=== PATIENT | female | born 1955 | race Two or more races ===

== ENCOUNTER 2017-05-02 11:04 | Inpatient (IN) | payer MEDICAID ==
[~2017-05-02] VITALS: Ht 165.1 cm; Wt 64.9 kg
[2017-05-02] VITALS (7 sets, daily range): BP systolic 102–135; BP diastolic 58–70
[~2017-05-02 11:04] MED LIST: LORazepam Inj 2mg/ml 1ml IV ONE; NKM; levETIRAcetam 500 MG in D5W 110 ML IV ONE; levETIRAcetam 500mg vial IV ONE
[2017-05-02 11:42] LABS: BASOPHILS % (AUTO) 1.3 % (0.0-2.0); EOSINOPHILS % (AUTO) 3.2 % (0.0-3.0); HEMATOCRIT 45.1 % (37.0-47.0); HEMOGLOBIN 15.1 G/DL (12.0-16.0); LYMPHOCYTES % (AUTO) 38.4 % (20.0-45.0); MEAN CORPUSCULAR VOLUME 89 FL (80-99); MONOCYTES % (AUTO) 7.5 % (1.0-10.0); NEUTROPHILS % (AUTO) 49.6 % (45.0-75.0); PLATELET COUNT 203 K/UL (150-450); RED BLOOD COUNT 5.04 M/UL (4.20-5.40); RED CELL DISTRIBUTION WIDTH 11.4 % (11.6-14.8); WHITE BLOOD COUNT 7.7 K/UL (4.8-10.8)
--- NOTE | 2017-05-02 11:42 | Diagnostic Imaging Report ---
Indication: Seizure Technique: Continuous helical CT scanning of the head was performed utilizing automated exposure control without intravenous contrast material. Axial and coronal reconstructions were obtained. Comparison: None CT dose: Total DLP 1460 mGycm; CTDI vol 70.4 mGy Findings: There is no acute intracranial hemorrhage, mass effect or cortical edema. There is a cavum septum pellucidum. The ventricles, sulci and cisterns are otherwise within normal limits. The posterior fossa and fourth ventricle are unremarkable. Sellar and suprasellar regions are grossly unremarkable. Visualized mastoid air cells and paranasal sinuses are unremarkable. No focal lesions of the bony calvarium or soft tissues of the scalp are seen. Impression: No evidence of acute intracranial hemorrhage, mass effect or cortical edema. MRI may be obtained for more sensitive evaluation of reported seizure. The CT scanner at [facility] is accredited by the [employer] and the scans are performed using protocols designed to limit radiation exposure to as low as reasonably achievable to attain images of sufficient resolution adequate for diagnostic evaluation.
[2017-05-02 11:44] LABS: ANION GAP 13 mmol/L (5-15); BLOOD UREA NITROGEN 22 mg/dL (7-18); CALCIUM 9.2 MG/DL (8.5-10.1); CARBON DIOXIDE 22 MMOL/L (21-32); CHLORIDE 103 MMOL/L (98-107); CREATININE 0.9 MG/DL (0.55-1.30); POTASSIUM 3.8 MMOL/L (3.5-5.1); SODIUM 138 MMOL/L (136-145)
[2017-05-02 11:49] LABS: ALANINE AMINOTRANSFERASE 43 U/L (12-78); ALBUMIN 3.9 G/DL (3.4-5.0); ALBUMIN/GLOBULIN RATIO 1.1 (1.0-2.7); ALKALINE PHOSPHATASE 98 U/L (46-116); ASPARTATE AMINO TRANSFERASE 30 U/L (15-37); BILIRUBIN,TOTAL 0.3 MG/DL (0.2-1.0); CREATINE KINASE 187 U/L (26-308)
--- NOTE | 2017-05-02 11:53 | Diagnostic Imaging Report ---
Indication: Chest pain Technique: XRAY Chest 1v Comparison: None Findings: The cardiomediastinal silhouette is within normal limits. There is no focal consolidation, pneumothorax or pleural effusion. Degenerative changes of the spine are noted. There is a radiopaque density projecting over the upper mediastinum. Impression: No acute cardiopulmonary disease. Radiopaque density projecting over the upper mediastinum. Clinical correlation recommended.
[2017-05-02 11:59] LABS: APPEARANCE,URINE CLEAR; BILIRUBIN, URINE NEGATIVE (NEGATIVE); COLOR,URINE PALE YELLOW; GLUCOSE, URINE (UA) NEGATIVE (NEGATIVE); KETONES,URINE NEGATIVE (NEGATIVE); LEUKOCYTE ESTERASE ,URINE NEGATIVE (NEGATIVE); NITRITE,URINE NEGATIVE (NEGATIVE); PH,URINE 6 (4.5-8.0); PROTEIN,URINE 1+ (NEGATIVE); UROBILINOGEN,URINE NORMAL MG/DL (0.0-1.0)
--- NOTE | 2017-05-02 15:45 | Emergency Room Report ---
History of Present Illness General Chief Complaint: Seizure Source: Patient Present Illness HPI The patient presents post seizure. Generalized tonic clonic seizure. According to family, the seizure lasted 2 minutes. The patient bit her tongue. She has never had a seizure before. She has felt dizziness recently. Also, some pressure in the back of her head for several months. She felt tingling before she passed out. She denies chest pain or palpitations. She was postictal when 911 arrived. She had gradually improving mentation. Her Accu- Chek was 86 in the field. MLAPPS performed by [facility] was negative. No fevers, NVD, incontinence, abdominal pain. No recent head trauma. Denies major medical problems or chronic medication use. No alcohol, drugs. Allergies: Coded Allergies: NO KNOWN ALLERGIES (Verified Allergy, Unknown, 05/02/17) Patient History Past Medical History: see triage record Social History: Denies: smoking, alcohol use, drug use Social History Narrative with family Reviewed Nursing Documentation: PMH: Agreed, PSxH: Agreed Nursing Documentation-PMH Past Medical History: No Stated History Review of Systems All Other Systems: negative except mentioned in HPI Physical Exam Vital Signs Date Time Temp Pulse Resp B/P (MAP) Pulse Ox O2 Delivery O2 Flow Rate FiO2 05/02/17 10:52 98.4 91 16 142/77 100 98.4 05/02/17 11:04 Room Air Sp02 EP Interpretation: reviewed, normal General Appearance: well appearing, no apparent distress, GCS 15 Head: normocephalic Eyes: bilateral eye normal inspection, bilateral eye PERRL, bilateral eye EOMI ENT: moist mucus membranes - lingual maceration Neck: supple Respiratory: lungs clear, normal breath sounds Cardiovascular #1: regular rate, rhythm Cardiovascular #2: 2+ radial (R) Gastrointestinal: normal inspection, non tender, no mass, non-distended, decreased bowel sounds Musculoskeletal: back normal, normal range of motion Neurologic: alert, oriented x3, representative government relations III-XII nml as tested, motor strength/tone normal, DTRs symmetric, sensory intact, cerebellar normal, normal gait, speech normal Psychiatric: mood/affect normal Skin: normal inspection, warm/dry Medical Decision Making Diagnostic Impression: Primary Impression: New onset seizure Additional Impression: Chest pain Qualified Codes: R07.9 - Chest pain, unspecified ER Course Patient presents with seizure. Differential includes brain bleed, electrolyte abnormality, withdrawal, syncopal seizure, cysticercosis amongst others. We need to also exclude acute myocardial infarction. Evaluation will be with CT of the head, chest x-ray, labs and EKG. Treatment will be with Ativan, Keppra, both IV. The patient will also receive IV hydration. EKG shows no acute injury. CT has no abnormalities. Chest x-ray is unremarkable. Labs are significant normal white count, normal electrolytes and negative urinalysis. The patient tolerated IV medications well and is fully oriented. She is complaining about some chest pain and a repeat EKG was done. The pain is more pleuritic and positional. She also has chest wall tenderness. When the patient stood, she was weak and pale. Due to the patient's age and new onset seizure of questionable etiology, patient admitted telemetry. Contacted Dr. Bustos for admission. Laboratory Tests Test 05/02/17 11:07 05/02/17 11:50 White Blood Count 7.7 K/UL (4.8-10.8) Red Blood Count 5.04 M/UL (4.20-5.40) Hemoglobin 15.1 G/DL (12.0-16.0) Hematocrit 45.1 % (37.0-47.0) Mean Corpuscular Volume 89 FL (80-99) Mean Corpuscular Hemoglobin 29.9 PG (27.0-31.0) Mean Corpuscular Hemoglobin Concent 33.5 G/DL (32.0-36.0) Red Cell Distribution Width 11.4 % (11.6-14.8) L Platelet Count 203 K/UL (150-450) Mean Platelet Volume 9.6 FL (6.5-10.1) Neutrophils (%) (Auto) 49.6 % (45.0-75.0) Lymphocytes (%) (Auto) 38.4 % (20.0-45.0) Monocytes (%) (Auto) 7.5 % (1.0-10.0) Eosinophils (%) (Auto) 3.2 % (0.0-3.0) H Basophils (%) (Auto) 1.3 % (0.0-2.0) Sodium Level 138 MMOL/L (136-145) Potassium Level 3.8 MMOL/L (3.5-5.1) Chloride Level 103 MMOL/L (98-107) Carbon Dioxide Level 22 MMOL/L (21-32) Anion Gap 13 mmol/L (5-15) Blood Urea Nitrogen 22 mg/dL (7-18) H Creatinine 0.9 MG/DL (0.55-1.30) Estimate Glomerular Filtration Rate > 60 mL/min (>60) Glucose Level 84 MG/DL (74-106) Calcium Level 9.2 MG/DL (8.5-10.1) Total Bilirubin 0.3 MG/DL (0.2-1.0) Aspartate Amino Transferase (AST) 30 U/L (15-37) Alanine Aminotransferase (ALT) 43 U/L (12-78) Alkaline Phosphatase 98 U/L (46-116) Total Creatine Kinase 187 U/L (26-308) Troponin I 0.000 ng/mL (0.000-0.056) Total Protein 7.4 G/DL (6.4-8.2) Albumin 3.9 G/DL (3.4-5.0) Globulin 3.5 g/dL Albumin/Globulin Ratio 1.1 (1.0-2.7) Serum Alcohol < 3 mg/dL Urine Color Pale yellow Urine Appearance Clear Urine pH 6 (4.5-8.0) Urine Specific [place] 1.015 (1.005-1.035) Urine Protein 1+ (NEGATIVE) H Urine Glucose (UA) Negative (NEGATIVE) Urine Ketones Negative (NEGATIVE) Urine Occult Blood Negative (NEGATIVE) Urine Nitrite Negative (NEGATIVE) Urine Bilirubin Negative (NEGATIVE) Urine Urobilinogen Normal MG/DL (0.0-1.0) Urine Leukocyte Esterase Negative (NEGATIVE) Urine RBC 0-2 /HPF (0 - 2) Urine WBC 0-2 /HPF (0 - 2) Urine Squamous Epithelial Cells Few /LPF (NONE/OCC) Urine Bacteria Few /HPF (NONE) Urine Opiates Screen Negative (NEGATIVE) Urine Barbiturates Screen Negative (NEGATIVE) Phencyclidine (PCP) Screen Negative (NEGATIVE) Urine Amphetamines Screen Negative (NEGATIVE) Urine Benzodiazepines Screen Negative (NEGATIVE) Urine Cocaine Screen Negative (NEGATIVE) Urine Marijuana (THC) Screen Negative (NEGATIVE) EKG Diagnostic Results Rate: normal Rhythm: NSR ST Segments: no acute changes Other Impression Second EKG at 1438. Sinus rhythm, low voltage S, rate 72, normal intervals. Rhythm Strip Diag. Results EP Interpretation: yes Rhythm: NSR, no PVC's, no ectopy Chest X-Ray Diagnostic Results Chest X-Ray Diagnostic Results : Chest X-Ray Ordered: Yes # of Views/Limited/Complete: 1 View Indication: Other EP Interpretation: Yes Interpretation: no consolidation, no effusion, no pneumothorax, no acute cardiopulmonary disease Impression: No acute disease Electronically Signed by: Electronically signed by Matias Henson MD CT/MRI/US Diagnostic Results CT/MRI/US Diagnostic Results : Imaging Test Ordered: Head Impression No evidence of acute intracranial hemorrhage, mass effect or cortical edema. Last Vital Signs Date Time Temp Pulse Resp B/P (MAP) Pulse Ox O2 Delivery O2 Flow Rate FiO2 05/02/17 19:48 98.1 86 21 105/66 98 Room Air 98.1 Status: improved Disposition: ADMITTED INPATIENT Condition: Serious Referrals: NOT CHOSEN AZALIA/,REFERRING (PCP) Matias Henson M.D. May 02, 2017 15:45
[2017-05-02] MEDS ORDERED: KEPPRA500 MG ORAL (15:52)
[2017-05-02] MEDS ORDERED: TYLENOL325 MG ORAL (15:52)
[2017-05-02] MEDS ORDERED: Mylanta II UD 30ml ORAL PRN (17:00)
[2017-05-02] MEDS ORDERED: Zolpidem 5mg tab ORAL PRN (17:00)
[2017-05-02] MEDS ORDERED: Miralax 17gm pkt ORAL PRN (17:00)
[2017-05-02] MEDS: Docusate 100mg cap ORAL SCH (21:44)
[2017-05-03] VITALS: BP 98/56
[2017-05-03 04:00] VITALS: BP 105/61
[2017-05-03 08:00] VITALS: BP 93/58
[2017-05-03 08:40] LABS: EOSINOPHILS % (AUTO) 3.2 % (0.0-3.0); HEMATOCRIT 35.2 % (37.0-47.0); HEMOGLOBIN 12.1 G/DL (12.0-16.0); LYMPHOCYTES % (AUTO) 28.8 % (20.0-45.0); MEAN CORPUSCULAR VOLUME 90 FL (80-99); MONOCYTES % (AUTO) 8.5 % (1.0-10.0); NEUTROPHILS % (AUTO) 58.4 % (45.0-75.0); PLATELET COUNT 153 K/UL (150-450); RED BLOOD COUNT 3.93 M/UL (4.20-5.40); RED CELL DISTRIBUTION WIDTH 11.3 % (11.6-14.8); WHITE BLOOD COUNT 5.7 K/UL (4.8-10.8)
[2017-05-03] MEDS: Docusate 100mg cap ORAL SCH ×2 (08:44→20:48)
[2017-05-03 09:20] LABS: ANION GAP 6 mmol/L (5-15); BLOOD UREA NITROGEN 12 mg/dL (7-18); CALCIUM 8.4 MG/DL (8.5-10.1); CARBON DIOXIDE 26 MMOL/L (21-32); CHLORIDE 110 MMOL/L (98-107); CREATININE 0.7 MG/DL (0.55-1.30); POTASSIUM 3.9 MMOL/L (3.5-5.1); SODIUM 142 MMOL/L (136-145)
[2017-05-03 12:00] VITALS: BP 101/55
--- NOTE | 2017-05-03 12:04 | Neurology Progress Note ---
Objective Physical Exam Last Vital Signs Date Time Temp Pulse Resp B/P (MAP) Pulse Ox O2 Delivery O2 Flow Rate FiO2 05/03/17 08:00 82 05/03/17 08:00 98.0 20 93/58 98 Room Air 98.0 Laboratory Tests Test 05/03/17 07:25 White Blood Count 5.7 K/UL (4.8-10.8) Red Blood Count 3.93 M/UL (4.20-5.40) L Hemoglobin 12.1 G/DL (12.0-16.0) Hematocrit 35.2 % (37.0-47.0) L Mean Corpuscular Volume 90 FL (80-99) Mean Corpuscular Hemoglobin 30.8 PG (27.0-31.0) Mean Corpuscular Hemoglobin Concent 34.4 G/DL (32.0-36.0) Red Cell Distribution Width 11.3 % (11.6-14.8) L Platelet Count 153 K/UL (150-450) Mean Platelet Volume 8.7 FL (6.5-10.1) Neutrophils (%) (Auto) 58.4 % (45.0-75.0) Lymphocytes (%) (Auto) 28.8 % (20.0-45.0) Monocytes (%) (Auto) 8.5 % (1.0-10.0) Eosinophils (%) (Auto) 3.2 % (0.0-3.0) H Basophils (%) (Auto) 1.0 % (0.0-2.0) Sodium Level 142 MMOL/L (136-145) Potassium Level 3.9 MMOL/L (3.5-5.1) Chloride Level 110 MMOL/L (98-107) H Carbon Dioxide Level 26 MMOL/L (21-32) Anion Gap 6 mmol/L (5-15) Blood Urea Nitrogen 12 mg/dL (7-18) Creatinine 0.7 MG/DL (0.55-1.30) Estimat Glomerular Filtration Rate > 60 mL/min (>60) Glucose Level 90 MG/DL (74-106) Calcium Level 8.4 MG/DL (8.5-10.1) L Magnesium Level 2.0 MG/DL (1.8-2.4) Vitamin B12 Level 1009 PG/ML (193-986) H Vitamin D 25-Hydroxy Pending 25-Hydroxy Vitamin D2 Pending 25-Hydroxy Vitamin D3 Pending Folate 14.0 NG/ML (8.6-58.9) Thyroid Stimulating Hormone (TSH) 1.738 uiU/mL (0.358-3.740) Prolactin Pending Impression/Recommendations Problems: (1) new onset generalised sz disorder Status: stable Recommendations #[id number] SANTOS FUENTES May 03, 2017 12:04
--- NOTE | 2017-05-03 14:47 | History and Physical ---
History of Present Illness General Date patient seen: May 03, 2017 Time patient seen: 14:47 Reason for Hospitalization: Seizure Present Illness HPI 61yo female with no sig pmh who presents with seizures. Pt states she was taking to her friend when suddenly she had LOC. Pt was noted to have tonic- clonic movements lasting abt 2 minutes. Pt also noted to have bitten her tongue during this episode. She stated that just prior to seizure she had a reflex in her eyes, She also had feeling of tingling before she passed out. Also c/o posterior occipital headache for the last few months. Pt was initially postictal but this gradually improvement. Pt states that 6 months ago she had a similar episode but there was no tongue biting, instead she had urinary incontinence. In ED, pt was noted to be postictal initially but this gradually improved. VSS. CT brain showed no acute abnormality. Pt was given keppra IV. Allergies: Coded Allergies: NO KNOWN ALLERGIES (Verified Allergy, Unknown, 05/02/17) Medication History Scheduled No Known Medications* (NKM - No Known Medications*), 0 ., (Reported) Discontinued Medications Acetaminophen (Tylenol), 650 MG ORAL Q6H PRN for Prn Pain/Headache/Temp > 101 Discontinued Reason: MD discontinued med Levetiracetam (Keppra), 500 MG ORAL EVERY 12 HOURS Discontinued Reason: MD discontinued med Patient History History Provided By: Patient, Medical Record, EMS Healthcare decision maker N Resuscitation status Full Code Advanced Directive on File No Past Medical/Surgical History Past Medical/Surgical History: (1) No significant past medical history Family History Family History: Patient reports no known family medical history. Social History Social History: (1) No significant social history Review of Systems Constitutional: Reports: no symptoms Eye: Reports: no symptoms ENT: Reports: no symptoms Respiratory: Reports: no symptoms Cardiovascular: Reports: no symptoms Gastrointestinal: Reports: no symptoms Genitourinary: Reports: no symptoms Musculoskeletal: Reports: no symptoms Skin: Reports: no symptoms Psychiatric: Reports: no symptoms Neurological: Reports: headache, seizure, tingling Endocrine: Reports: no symptoms Hematologic/Lymphatic: Reports: no symptoms Physical Exam Physical Exam Narrative General: alert, cooperative, no distress, appears stated age Head: normocephalic, without obvious abnormality, atraumatic Eyes: conjunctivae/corneas clear. PERRL, EOM's intact Throat: lips, mucosa, and tongue normal. MMM Neck: supple, symmetrical, trachea midline, and no JVD Lungs: clear to auscultation bilaterally Heart: regular rate and rhythm, S1, S2 normal, no murmur, click, rub or gallop Abdomen: soft, non-tender, non-distended, bowel sounds normal; no masses or organomegaly Extremities: extremities normal, atraumatic, no cyanosis or edema Pulses: 2+ and symmetric Skin: skin color, texture, turgor normal; no rashes or lesions Neurologic: grossly normal, no focal deficits Last 24 Hour Vital Signs Date Time Temp Pulse Resp B/P (MAP) Pulse Ox O2 Delivery O2 Flow Rate FiO2 05/03/17 08:00 82 05/03/17 08:00 98.0 70 20 93/58 98 Room Air 98.0 05/03/17 04:00 56 05/03/17 04:00 97.9 66 20 105/61 95 Room Air 97.9 05/03/17 01:03 67 05/03/17 00:00 98.6 76 18 98/56 95 Room Air 98.6 05/02/17 19:48 98.1 86 21 105/66 98 Room Air 98.1 05/02/17 19:30 97.7 73 20 102/58 95 Room Air 97.7 05/02/17 19:30 78 05/02/17 19:13 98.1 86 21 105/66 98 Room Air 98.1 05/02/17 18:36 98.1 84 15 118/67 100 Room Air 98.1 05/02/17 16:55 98.1 05/02/17 16:22 98.1 81 18 109/60 99 Room Air 98.1 05/02/17 15:56 98.0 05/02/17 14:57 98.0 79 17 105/59 100 Room Air 98.0 Intake and Output 05/02/17 05/03/17 19:00 07:00 Intake Total 0 ml 1850 ml Balance 0 ml 1850 ml Intake Oral 0 ml 350 ml IV Total 1500 ml # Voids 2 Laboratory Tests Test 05/03/17 07:25 White Blood Count 5.7 K/UL (4.8-10.8) Red Blood Count 3.93 M/UL (4.20-5.40) L Hemoglobin 12.1 G/DL (12.0-16.0) Hematocrit 35.2 % (37.0-47.0) L Mean Corpuscular Volume 90 FL (80-99) Mean Corpuscular Hemoglobin 30.8 PG (27.0-31.0) Mean Corpuscular Hemoglobin Concent 34.4 G/DL (32.0-36.0) Red Cell Distribution Width 11.3 % (11.6-14.8) L Platelet Count 153 K/UL (150-450) Mean Platelet Volume 8.7 FL (6.5-10.1) Neutrophils (%) (Auto) 58.4 % (45.0-75.0) Lymphocytes (%) (Auto) 28.8 % (20.0-45.0) Monocytes (%) (Auto) 8.5 % (1.0-10.0) Eosinophils (%) (Auto) 3.2 % (0.0-3.0) H Basophils (%) (Auto) 1.0 % (0.0-2.0) Sodium Level 142 MMOL/L (136-145) Potassium Level 3.9 MMOL/L (3.5-5.1) Chloride Level 110 MMOL/L (98-107) H Carbon Dioxide Level 26 MMOL/L (21-32) Anion Gap 6 mmol/L (5-15) Blood Urea Nitrogen 12 mg/dL (7-18) Creatinine 0.7 MG/DL (0.55-1.30) Estimat Glomerular Filtration Rate > 60 mL/min (>60) Glucose Level 90 MG/DL (74-106) Calcium Level 8.4 MG/DL (8.5-10.1) L Magnesium Level 2.0 MG/DL (1.8-2.4) Vitamin B12 Level 1009 PG/ML (193-986) H Vitamin D 25-Hydroxy Pending 25-Hydroxy Vitamin D2 Pending 25-Hydroxy Vitamin D3 Pending Folate 14.0 NG/ML (8.6-58.9) Thyroid Stimulating Hormone (TSH) 1.738 uiU/mL (0.358-3.740) Prolactin Pending Height (Feet): 5 Height (Inches): 5.00 Weight (Pounds): 143 Medications Current Medications Medications (Trade) Dose Ordered Sig/Gris Route PRN Reason Start Time Stop Time Status Last Admin Dose Admin Acetaminophen (Tylenol) 650 mg Q4H PRN ORAL Mild Pain (Pain Scale 1-3) 05/02/17 17:00 06/01/17 16:59 Acetaminophen (Tylenol) 650 mg Q4H PRN ORAL fever 05/02/17 17:00 06/01/17 16:59 Al Hydroxide/Mg Hydroxide (Mylanta II) 30 ml Q6H PRN ORAL dyspepsia 05/02/17 17:00 06/01/17 16:59 Bisacodyl (Dulcolax) 10 mg HSPRN PRN RECTAL Constipation 05/02/17 17:00 06/01/17 16:59 Dextrose (Dextrose 50%) STAT PRN IV Hypoglycemia 05/02/17 17:00 06/01/17 16:59 Diphenhydramine HCl (Benadryl) 25 mg Q6H PRN ORAL Itching/Pruritis 05/02/17 17:00 06/01/17 16:59 Docusate Sodium (Colace) 100 mg EVERY 12 HOURS ORAL 05/02/17 21:00 06/01/17 20:59 05/03/17 08:44 Levetiracetam (Keppra) 500 mg Q12HR ORAL 05/02/17 21:00 06/01/17 20:59 05/03/17 08:43 Ondansetron HCl (Zofran) 4 mg Q6H PRN IVP Nausea & Vomiting 05/02/17 17:00 06/01/17 16:59 Polyethylene Glycol (Miralax) 17 gm HSPRN PRN ORAL Constipation 05/02/17 17:00 06/01/17 16:59 Sodium Chloride 1,000 ml @ 125 mls/hr Q8H IV 05/04/17 13:00 06/03/17 12:59 Zolpidem Tartrate (Ambien) 5 mg HSPRN PRN ORAL Insomnia 05/02/17 17:00 05/09/17 16:59 Assessment/Plan Problem List: (1) New onset seizure ICD Codes: R56.9 - Unspecified convulsions SNOMED: [id number] Status: stable Assessment/Plan Admit inpt Neurology consulted Cont keppra 500mg BID IVFs Check EEG Check TSH, B12/folate, vit D, prolactin Seizure precautions Neuro checks DVT ppx w/ SCDs, early ambulation FULL CODE D/w pt, RN, SW/CM, neuro regarding mgmt and dispo Juli Laura M.D. May 03, 2017 14:47
[2017-05-03 16:00] VITALS: BP 104/54
--- NOTE | 2017-05-03 18:45 | Consultation ---
DATE OF CONSULTATION: 05/03/2017 NEUROLOGICAL CONSULTATION CONSULTING PHYSICIAN: Óscar Sim M.D. REFERRING PHYSICIAN: Lazaro Dick M.D. HISTORY OF PRESENT ILLNESS: The patient is a 61-year-old female seen in neurological consultation to evaluate the episode appears to be seizures. According to the patient, on the day of admission, she was talking to her friend when suddenly she lost consciousness. She indicated just prior to this seizure she had what appears "reflex" in her eyes." Episode lasted about two minutes combined with generalized clonic-tonic movement during which she has bitten her tongue. On admission she was indicating that she was feeling tingling before she passed out and had some posterior occipital headaches for the last few months. The patient was initially postictal which gradually resolved. Her vital signs were stable. Blood pressure 142/77, afebrile. Her initial workup included CT scan of the brain without contrast revealing no acute intracranial abnormalities. No midline shift. Her chest x-ray with no acute cardiopulmonary disease. Laboratory work included normal CBC studies. Chemistry panel unremarkable. B12, folate, and thyroid function were normal. Toxicology panel was negative. Urinalysis was negative. The patient now provided with further information indicating that about six months ago she has somewhat of similar episode although at that time there was no tongue biting. She had urinary incontinence. There was no medical assessment. The patient indicated in the last couple weeks she had at least episodes of almost fainting which she calls "dizzy spells". She is not on any medications. She has no knowledge of any medical issues. Following current admission, the patient was placed on Keppra. She was given Tylenol p.r.n., Benadryl p.r.n., zolpidem. ALLERGIES: None reported. FAMILY HISTORY: Noncontributory except her uncle who had previously seizures. REVIEW OF SYMPTOMS: At this time, the patient is feeling fairly well. She has no headache. No dizziness. No chest pain. No palpitations. She has slight aches in her knees affecting her ambulation but also aches in her both arms and bitten tongue. PHYSICAL EXAMINATION: GENERAL: A well-developed, well-nourished female, not in acute distress, lying comfortably in bed. VITAL SIGNS: Now are stable. Blood pressure down to 93/58, afebrile. HEENT: Head normocephalic. No evidence of trauma. Eyes, ears, and throat are clear except bitten tongue. NECK: Supple. No meningeal signs. MUSCULOSKELETAL EXAMINATION: Unremarkable except palpable tenderness in both arms. Peripheral pulses 1+ symmetric. MENTAL STATUS: She is alert and oriented x3 with no evidence of aphasia or apraxia. Cognitive function normal. CRANIAL NERVE II: Pupils both responding to light and accommodation. Extraocular movement intact. No nystagmus. CRANIAL NERVE V: Normal corneal responses. CRANIAL NERVE VII: No facial asymmetry. CRANIAL NERVE VIII: Normal hearing. CRANIAL NERVE IX THROUGH XII: Normal limits. MOTOR EXAMINATION: Normal muscle tone. Strength 5/5 in all extremities. No involuntary movement. Deep tendon reflexes 1+ symmetric with downgoing toes on both sides. Sensory exam normal to pinprick and light touch. Gait is slow, but stable. IMPRESSION: New onset of generalized seizure disorder. RECOMMENDATION: 1. MRI of the brain. 2. EEG. 3. Continue with Keppra 500 mg 4. No driving, DMV to be notified. 5. Maintain seizure precaution. Thank you for allowing me to see this interesting patient in neurological consultation because records. Óscar Danielle Sim DR: Frankie JOB#: [id number] CC:
[2017-05-03 20:00] VITALS: BP 109/64
[2017-05-04] VITALS: BP 109/63
[2017-05-04 04:00] VITALS: BP 93/55
[2017-05-04 08:00] VITALS: BP 90/58
[2017-05-04] MEDS: Docusate 100mg cap ORAL SCH (09:00)
[2017-05-04 11:29] VITALS: BP 98/61
--- NOTE | 2017-05-04 11:46 | Neurology Progress Note ---
Interim History Interim History ROS Limited/Unobtainable: No Complaints: feel ok Events: stable Review of Systems Neuro Review of Systems per family witness--- c/o darkness in eyes become pale/rigid, generalised tremorx 4min followed by severe confusion Objective Physical Exam Last Vital Signs Date Time Temp Pulse Resp B/P (MAP) Pulse Ox O2 Delivery O2 Flow Rate FiO2 05/04/17 11:29 98.0 61 18 98/61 99 Room Air 98.0 General: well developed, well nourished, no acute distress Head: normocophalic, atraumatic Neck: no rigidity EENT: other - bitten tongue Neurologic Exam Mental Status: awake, alert, oriented x4, normal cognition, good mathematical skills, normal recent memory, normal remote memory, preserved visuospatial function Speech: normal speech, no dysarthia Language: normal language, no aphasia Cranial Nerve II: fundus normal, visual pierre, no papilledema Cranial Nerves III, IV, : PERRLA, EOMI, pupils Cranial Nerve V: normal facial sensations, temporales function normal, masseters function normal, pterygoids function normal Cranial Nerve VII: no facial asymmetry, normal facial expressions Cranial Nerve VIII: normal hearing, no nystagmus Cranial Nerve IX: normal palate elevation, gag response Cranial Nerve X: no voice hoarseness Cranial Nerve XI: SCM symmetric, trapezii function normal Cranial Nerve XII: tongue midline, no tongue atrophy/fasciculations Motor System: normal muscle tone, strength 5/5, no involuntary movement, no muscle wasting Sensory: normal pinprick, normal light touch, normal position sense, normal graphesthesia Coordination: normal finger to nose bilaterally, normal heel to lutz bilaterally, negative Romberg test Deep Tendon Reflexes: 2+ bicep (L), 2+ bicep (R), 2+ tricep (L), 2+ tricep (R) , 2+ brachioradialis (L), 2+ brachioradialis (R), 2+ knee (L), 2+ knee (R), 2+ ankle (L), 2+ ankle (R) Reflexes: flexor plantar (L), flexor plantar (R) Stance: normal Gait: stable, normal regular, heel + toe gait Impression/Recommendations Problems: (1) new onset generalised sz disorder Status: stable Recommendations #[id number] CT brain nl EEG nl cont with keppra 500mg bid neuro --- stable GORINSTEIN,SANTOS May 04, 2017 11:46
--- NOTE | 2017-05-04 11:47 | Neurology Progress Note ---
Interim History Interim History ROS Limited/Unobtainable: No Complaints: feel ok Events: stable Objective Physical Exam Last Vital Signs Date Time Temp Pulse Resp B/P (MAP) Pulse Ox O2 Delivery O2 Flow Rate FiO2 05/04/17 11:29 98.0 61 18 98/61 99 Room Air 98.0 General: well developed, well nourished, no acute distress Head: normocophalic, atraumatic Neck: no rigidity EENT: other - bitten tongue Neurologic Exam Mental Status: awake, alert, oriented x4, normal cognition, good mathematical skills, normal recent memory, normal remote memory, preserved visuospatial function Speech: normal speech, no dysarthia Language: normal language, no aphasia Cranial Nerve II: fundus normal, visual pierre, no papilledema Cranial Nerves III, IV, : PERRLA, EOMI, pupils Cranial Nerve V: normal facial sensations, temporales function normal, masseters function normal, pterygoids function normal Cranial Nerve VII: no facial asymmetry, normal facial expressions Cranial Nerve VIII: normal hearing, no nystagmus Cranial Nerve IX: normal palate elevation, gag response Cranial Nerve X: no voice hoarseness Cranial Nerve XI: SCM symmetric, trapezii function normal Cranial Nerve XII: tongue midline, no tongue atrophy/fasciculations Motor System: normal muscle tone, strength 5/5, no involuntary movement, no muscle wasting Sensory: normal pinprick, normal light touch, normal position sense, normal graphesthesia Coordination: normal finger to nose bilaterally, normal heel to lutz bilaterally, negative Romberg test Deep Tendon Reflexes: 2+ bicep (L), 2+ bicep (R), 2+ tricep (L), 2+ tricep (R) , 2+ brachioradialis (L), 2+ brachioradialis (R), 2+ knee (L), 2+ knee (R), 2+ ankle (L), 2+ ankle (R) Reflexes: flexor plantar (L), flexor plantar (R) Stance: normal Gait: stable, normal regular, heel + toe gait Impression/Recommendations Problems: (1) new onset generalised sz disorder Status: stable Recommendations #[id number] CT brain nl EEG nl cont with keppra 500mg bid neuro --- stable SANTOS FUENTES May 04, 2017 11:47
[2017-05-04] MEDS ORDERED: KEPPRA500 M3 ORAL (13:33)
--- NOTE | 2017-05-04 19:00 | Electroencephalogram ---
DATE OF PROCEDURE: 05/03/2017 ELECTROENCEPHALOGRAPHY REPORT HISTORY: The patient is a 61-year-old female with episodes of transient unresponsiveness, suspected seizure activity. EEG was requested to evaluate ongoing seizure event or identify epileptogenic focus. Currently, the patient on Keppra. TECHNIQUE: EEG was done using 18 electrodes placed on scalp to scalp, scalp to ear montages according to 10/20 International System. During the recording, the patient was predominantly awake with fair cooperation, normal mentality. Throughout the recording, background activity consists of well regulated, medium to high voltage alpha activities ranging 8-10 cycles per second bilaterally with good response to physiological stimulation. Photic stimulation from 3 to 32 hertz was done, result, no significant changes. Brief epochs of attenuation noted corresponding to sleep stage. IMPRESSION: Normal awake stage 1 sleep electroencephalogram with photic stimulation and hyperventilation. COMMENT: Single normal EEG does not rule out seizure disorder. Óscar Sim M.D. DR: MILAGRO JOB#: [id number] CC:
--- NOTE | 2017-05-06 13:52 | Discharge Summary ---
Discharge Summary Hospital Course Date of Admission May 02, 2017 at 16:35 Date of Discharge May 04, 2017 at 14:50 Admitting Diagnosis new onset seizure HPI July Schuster is a 61 year old female who was admitted on May 02, 2017 at 16:35 for New Onset Seizure Hospital Course [id number] Discharge Discharge Disposition Patient was discharged to Home (01) Discharge Diagnoses: Polly Wolfe NP May 06, 2017 13:52
--- NOTE | 2017-05-06 21:34 | Cardiology Report ---
APPROVED REPORT EKG Measurement Heart [id number] Normal sinus rhythm Low voltage QRS Cannot rule out Anterior infarct, age undetermined Abnormal ECG
--- NOTE | 2017-05-06 21:36 | Cardiology Report ---
APPROVED REPORT EKG Measurement Heart [id number] Normal sinus rhythm Low voltage QRS Borderline ECG
--- NOTE | 2017-05-07 03:45 | Discharge Summary 2 SIG ---
DATE OF ADMISSION: 05/02/2017 DATE OF DISCHARGE: 05/04/2017 STORE ASSOCIATE: Óscar Sim M.D. BRIEF HOSPITAL COURSE: The patient is a 61-year-old female with no significant medical history, presented to ED due to seizures. The patient was talking to her friend when suddenly she had loss of consciousness and was noted to have tonic-clonic movements lasting about two minutes. The patient was also noted to have bitten her tongue during this episode. She had a feeling of tingling before she passed out and also complained of posterior occipital headache for the last few months. She was initially postictal, however, eventually improved. She claimed that six months prior, she had a similar episode, however, there was no tongue biting, but with urinary incontinence. On evaluation at ED, the patient was postictal initially, however, gradually improved. CT of the brain showed no acute abnormality. She was loaded with IV Keppra. She was admitted to telemetry for new onset seizure and was placed on seizure precautions. Neurology evaluation was done. She was given IV fluids and was continued on Keppra 500 mg p.o. b.i.d. Neurology gomez, the patient was stable. There was no recurrence in seizure episodes. She had an EEG that showed normal awake stage 1 sleep electroencephalogram with photic stimulation and hyperventilation. She was eventually cleared for discharge home to follow up with PCP. FINAL DIAGNOSIS: New onset seizure disorder. DISCHARGE MEDICATIONS: Continue with Keppra 500 mg q.12 h. DISCHARGE INSTRUCTIONS: Follow up with PCP in a week. Juli Laura M.D. I have been assigned to dictate discharge summary on this account and I was not involved in the patient's management. Polly Wolfe N.P. DR: RONI JOB#: [id number] CC: EMILY
== END 2017-05-04 14:50 | disposition home or self-care (01) | DRG 53 ==
LOC: EDBD 11:04 → EMR 12:00 → 2E 16:35 → EDBEDREQ 18:02
DX: G40.89 Other seizures (principal)
CPT/HCPCS: 36415; 70450; 71045; 80048; 80053; 80299; 80307; 80329; 81003; 82306; 82550; 82607; 82746; 83735; 84146; 84443; 84484; 85025; 93005; 95819; 99285